=== PATIENT | female | born 1980 | race Two or more races ===

== ENCOUNTER 2022-03-29 09:29 | Emergency (ER) | payer OTHER ==
[~2022-03-29] VITALS: Ht 175.3 cm; Wt 104.3 kg
[2022-03-29] MEDS ORDERED: ZOFRAN8 MG PO (10:10)
[2022-03-29] MEDS ORDERED: PRENA1 CHEW TA1.4 MG PO (10:10)
== END 2022-03-29 15:10 ==
LOC: ER 09:29
DX: O20.9 Hemorrhage in early pregnancy, unspecified (principal); Z3A.08 8 weeks gestation of pregnancy; O34.01 Maternal care for unspecified congenital malformation of uterus, first trimester; Q51.28 Other and unspecified doubling of uterus